=== PATIENT | female | born 1980 | race African-American/Black ===

== ENCOUNTER 2017-11-12 22:01 | Emergency (ER) | payer SELFPAY ==
[~2017-11-12] VITALS: Ht 180.3 cm; Wt 59.0 kg
[2017-11-12 22:20] VITALS: BP 129/59
[2017-11-12] MEDS ORDERED: LIDOCAINE700 M1 TP (22:44)
[2017-11-12] MEDS ORDERED: ACETAMINOPHEN500 M3 ORAL (22:44)
[2017-11-12] MEDS ORDERED: Acetaminophen 500mg (ES) tab ORAL ONE (22:45)
[2017-11-12 23:50] VITALS: BP 129/59
--- NOTE | 2017-11-13 02:59 | Emergency Room Report ---
History of Present Illness General Chief Complaint: Pain Source: Patient Present Illness HPI Patient is a 36-year-old female who presented after increased left knee and thigh pain. The patient reports having recently fallen down some stairs. Patient had previously been seen had imaging performed at another hospital. The patient denied any numbness or weakness. She reported having some low back pain. The patient states she been having worsening pain with ambulation. Allergies: Coded Allergies: No Known Allergies (Unverified , 11/12/17) Patient History Past Medical History: see triage record Last Menstrual Period: 09/2017 Now: No Reviewed Nursing Documentation: PMH: Agreed; PSxH: Agreed Nursing Documentation-PMH Past Medical History: No History, Except For Hx Neurological Problems: No - chronic back pain Review of Systems All Other Systems: negative except mentioned in HPI Physical Exam Vital Signs Date Time Temp Pulse Resp B/P (MAP) Pulse Ox O2 Delivery O2 Flow Rate FiO2 11/12/17 22:08 98.0 99 16 129/59 96 Room Air 98.1 General Appearance: well appearing, no apparent distress, alert, GCS 15 Head: normocephalic, atraumatic ENT: hearing grossly normal, normal voice Neck: full range of motion, supple Respiratory: no respiratory distress, speaking full sentences Musculoskeletal: normal inspection, back normal, digits/nails normal, no calf tenderness Neurologic: normal inspection, alert, oriented x3, responsive, normal gait Psychiatric: mood/affect normal Skin: no rash Medical Decision Making Diagnostic Impression: Primary Impression: Contusion of leg, left ER Course Patient presented for leg pain. Differential diagnosis included but was not limited to fracture, contusion, vascular insufficiency, aortic aneurysm, cellulitis. Patient has a benign exam and does not appear to require any further imaging or laboratory testing at this time. The patient given prescription for lidocaine patch as well as ibuprofen.The patient is advised to follow up with primary care doctor in 1-2 days. Patient is advised to return if any worsening condition or if any changes in status that are concerning. This report is dictated with [employer] lumber sorter software which may occasionally lead to discrepancies related to use of this software. Last Vital Signs Date Time Temp Pulse Resp B/P (MAP) Pulse Ox O2 Delivery O2 Flow Rate FiO2 11/12/17 23:50 98.0 99 16 129/59 96 Room Air Status: improved Disposition: HOME, SELF-CARE Condition: Stable Scripts Lidocaine (Lidocaine) 1 Each Adh..patch 700 MG TP DAILY, #30 PATCH Prov: Xander Ramon MD 11/12/17 Acetaminophen* (ACETAMINOPHEN EXTRA STRENGTH*) 500 Mg Tablet 1000 MG ORAL Q8H PRN for Fever/Headache/Mild Pain, #30 TAB Prov: Xander Ramon MD 11/12/17 Patient Instructions: Contusion Xander Ramon MD November 13, 2017 02:59
== END 2017-11-12 23:45 | disposition home or self-care (01) ==
LOC: EMR 22:31
DX: S80.12XA Contusion of left lower leg, initial encounter (principal); W10.9XXA Fall (on) (from) unspecified stairs and steps, initial encounter; Y92.9 Unspecified place or not applicable; M54.5 Low back pain
CPT/HCPCS: 99284